=== PATIENT | male | born 1940 | race Caucasian/White ===

== ENCOUNTER → 2024-04-14 09:39 | Outpatient (REF) | payer MEDICARE, OTHER, SELFPAY ==
[2024-04-15 14:30] LABS: Calprotectin, Fecal 199 ug/g (<=49)
== END ==
LOC: REG 09:39
PROVIDERS: ATTENDING PHYSICIAN Physician Assistant; FAMILY PHYSICIAN Family Medicine; REFERRING PHYSICIAN Internal Medicine Cardiovascular Disease
DX: K51.90 Ulcerative colitis, unspecified, without complications (principal)
CPT/HCPCS: 83993

== ENCOUNTER → 2024-04-20 06:27 | Day surgery (SDC) | payer MEDICARE, OTHER, SELFPAY | LOC: GI 06:27 | PROVIDERS: ATTENDING PHYSICIAN Internal Medicine; FAMILY PHYSICIAN Family Medicine | DX: K64.8 Other hemorrhoids (principal); K92.1 Melena; K31.7 Polyp of stomach and duodenum; D49.0 Neoplasm of unspecified behavior of digestive system; D12.3 Benign neoplasm of transverse colon; D12.5 Benign neoplasm of sigmoid colon; K31.89 Other diseases of stomach and duodenum; Z98.0 Intestinal bypass and anastomosis status | CPT/HCPCS: 45385; 45380; 43239; 88305; 88342 ==

== ENCOUNTER → 2024-04-27 11:57 | Outpatient (REF) | payer MEDICARE, OTHER, SELFPAY ==
[2024-04-27 12:53] LABS: % Basophils 0.4 % (0-2); % Eosinophils 2.1 % (0-6); % Immature Granulocytes 0.2 % (0-0.5); % Lymphocytes 42.6 % (20.5-51.1); % Monocytes 6.8 % (1.7-9.3); % Neutrophils 47.9 % (42.2-75.2); Absolute Eosinophils 0.1 10^3/uL (0-0.7); Absolute Lymphocytes 2.4 10^3/uL (1.2-3.4); Absolute Monocytes 0.4 10^3/uL (0.1-0.6); Absolute Neutrophils 2.7 10^3/uL (1.4-6.5); Hematocrit 38.8 % (39.0-52.0); Hemoglobin 12.6 g/dL (13.0-18.0); Mean Corp Hgb Conc. 32.5 g/dL (33.0-37.0); Mean Corpuscular Hgb 29.2 pg (27.0-31.0); Mean Corpuscular Volume 89.8 fL (80.0-94.0); Mean Platelet Volume 9.3 fL (7.4-10.4); Nucleated Red Blood Cells % 0 % (-); Platelet Count 157 10^3/uL (130-400); Red Blood Cell Count 4.32 10^6/uL (4.70-6.10); Red Cell Dist. Width 13.9 % (11.5-14.5); White Blood Cell Count 5.7 10^3/uL (4.8-10.8)
[2024-04-27 14:00] LABS: Iron 62 ug/dl (49-181)
[2024-04-27 14:10] LABS: Percent Saturation 18 % (20-50); Total Iron Binding Capacity 330 ug/dl (261-462)
[2024-04-27 14:40] LABS: Ferritin 15.5 ng/ml (17.9-464.0)
== END ==
LOC: REG 11:57
PROVIDERS: ATTENDING PHYSICIAN Internal Medicine Hematology & Oncology
DX: D50.9 Iron deficiency anemia, unspecified (principal); K91.2 Postsurgical malabsorption, not elsewhere classified
CPT/HCPCS: 36415; 82728; 83540; 83550; 85025

== ENCOUNTER → 2024-11-09 10:15 | Outpatient (REF) | payer MEDICARE, OTHER, SELFPAY ==
[2024-11-09 10:54] LABS: % Basophils 0.5 % (0-2); % Eosinophils 2.3 % (0-6); % Immature Granulocytes 0.2 % (0-0.5); % Lymphocytes 48.2 % (20.5-51.1); % Monocytes 7.2 % (1.7-9.3); % Neutrophils 41.6 % (42.2-75.2); Absolute Eosinophils 0.1 10^3/uL (0-0.7); Absolute Lymphocytes 2.7 10^3/uL (1.2-3.4); Absolute Monocytes 0.4 10^3/uL (0.1-0.6); Absolute Neutrophils 2.3 10^3/uL (1.4-6.5); Hematocrit 40.7 % (39.0-52.0); Hemoglobin 13.7 g/dL (13.0-18.0); Mean Corp Hgb Conc. 33.7 g/dL (33.0-37.0); Mean Corpuscular Hgb 30.2 pg (27.0-31.0); Mean Corpuscular Volume 89.8 fL (80.0-94.0); Nucleated Red Blood Cells % 0 % (-); Platelet Count 147 10^3/uL (130-400); Red Blood Cell Count 4.53 10^6/uL (4.70-6.10); Red Cell Dist. Width 13.5 % (11.5-14.5); White Blood Cell Count 5.6 10^3/uL (4.8-10.8)
[2024-11-09 11:21] LABS: ALT (SGPT) 73 U/L (0-50); AST (SGOT) 59 U/L (17-59); Albumin 4.3 g/dl (3.5-5.0); Alkaline Phosphatase 118 U/L (38-126); Blood Urea Nitrogen 21 mg/dl (9-20); Calcium 9.4 mg/dl (8.4-10.2); Carbon Dioxide 29 mmol/L (22-30); Chloride 107 mmol/L (98-107); Glucose 105 mg/dl (70-99); HDL Cholesterol 48 mg/dl; Iron 82 ug/dl (49-181); LDL Cholesterol, Calculated 96 mg/dl; Potassium 4.3 mmol/L (3.5-5.1); Sodium 141 mmol/L (135-145); Total Bilirubin 0.7 mg/dl (0.2-1.3); Total Cholesterol 186 mg/dl (50-199); Total Protein 6.7 g/dl (6.3-8.2); Triglyceride 213 mg/dl (10-149); Very Low Density Lipoprotein 42 mg/dl (0-30); eGFR > 60.00
[2024-11-09 11:30] LABS: Percent Saturation 28 % (20-50); Total Iron Binding Capacity 291 ug/dl (261-462)
== END ==
LOC: REG 10:15
PROVIDERS: ATTENDING PHYSICIAN Internal Medicine Hematology & Oncology; FAMILY PHYSICIAN Family Medicine
DX: D50.9 Iron deficiency anemia, unspecified (principal); K91.2 Postsurgical malabsorption, not elsewhere classified; D50.8 Other iron deficiency anemias; Z00.01 Encounter for general adult medical examination with abnormal findings; K51.90 Ulcerative colitis, unspecified, without complications; K21.9 Gastro-esophageal reflux disease without esophagitis; J45.909 Unspecified asthma, uncomplicated; G47.30 Sleep apnea, unspecified; E78.5 Hyperlipidemia, unspecified; I10 Essential (primary) hypertension; I48.0 Paroxysmal atrial fibrillation
CPT/HCPCS: 36415; 80053; 80061; 82728; 83540; 83550; 85025

== ENCOUNTER → 2024-12-21 09:26 | Outpatient (REF) | payer MEDICARE, OTHER, SELFPAY ==
[2024-12-21 11:10] LABS: ALT (SGPT) 37 U/L (0-50); AST (SGOT) 36 U/L (17-59); Albumin 4.5 g/dl (3.5-5.0); Blood Urea Nitrogen 17 mg/dl (9-20); Carbon Dioxide 30 mmol/L (22-30); Chloride 105 mmol/L (98-107); Glucose 97 mg/dl (70-99); Sodium 143 mmol/L (135-145); Total Bilirubin 0.6 mg/dl (0.2-1.3); eGFR > 60.00
[2024-12-21 11:18] LABS: Alkaline Phosphatase 99 U/L (38-126); Calcium 9.4 mg/dl (8.4-10.2)
== END ==
LOC: REG 09:26
PROVIDERS: ATTENDING PHYSICIAN Family Medicine
DX: R79.89 Other specified abnormal findings of blood chemistry (principal)
CPT/HCPCS: 36415; 80053

== ENCOUNTER → 2025-04-01 10:52 | Outpatient (REF) | payer MEDICARE, OTHER, SELFPAY | LOC: DHSLP 10:52 | PROVIDERS: ATTENDING PHYSICIAN Internal Medicine Critical Care Medicine; FAMILY PHYSICIAN Family Medicine | DX: G47.33 Obstructive sleep apnea (adult) (pediatric) (principal) | CPT/HCPCS: 95800 ==

== ENCOUNTER → 2025-04-07 09:08 | Outpatient (REF) | payer MEDICARE, OTHER, SELFPAY ==
[2025-04-07 10:21] LABS: % Basophils 0.5 % (0-2); % Eosinophils 1.8 % (0-6); % Immature Granulocytes 0.3 % (0-0.5); % Lymphocytes 43.3 % (20.5-51.1); % Monocytes 7.8 % (1.7-9.3); % Neutrophils 46.3 % (42.2-75.2); Absolute Eosinophils 0.1 10^3/uL (0-0.7); Absolute Lymphocytes 2.8 10^3/uL (1.2-3.4); Absolute Monocytes 0.5 10^3/uL (0.1-0.6); Hematocrit 41.1 % (39.0-52.0); Hemoglobin 13.8 g/dL (13.0-18.0); Mean Corp Hgb Conc. 33.6 g/dL (33.0-37.0); Mean Corpuscular Hgb 30.1 pg (27.0-31.0); Mean Corpuscular Volume 89.5 fL (80.0-94.0); Mean Platelet Volume 8.9 fL (7.4-10.4); Nucleated Red Blood Cells % 0 % (-); Platelet Count 159 10^3/uL (130-400); Red Blood Cell Count 4.59 10^6/uL (4.70-6.10); Red Cell Dist. Width 13.4 % (11.5-14.5); White Blood Cell Count 6.5 10^3/uL (4.8-10.8)
[2025-04-07 10:29] LABS: INR 1.79; PT 21.3 Sec (11.4-14.6)
[2025-04-07 10:42] LABS: ALT (SGPT) 25 U/L (0-50); AST (SGOT) 24 U/L (17-59); Albumin 4.2 g/dl (3.5-5.0); Alkaline Phosphatase 73 U/L (38-126); Blood Urea Nitrogen 20 mg/dl (9-20); Calcium 9.5 mg/dl (8.4-10.2); Carbon Dioxide 27 mmol/L (22-30); Chloride 111 mmol/L (98-107); Glucose 104 mg/dl (70-99); Potassium 4.2 mmol/L (3.5-5.1); Sodium 145 mmol/L (135-145); Total Bilirubin 0.7 mg/dl (0.2-1.3); Total Protein 6.6 g/dl (6.3-8.2); eGFR > 60.00
== END ==
LOC: SDSPAT 09:08
PROVIDERS: ATTENDING PHYSICIAN Internal Medicine Cardiovascular Disease; FAMILY PHYSICIAN Family Medicine
DX: I48.0 Paroxysmal atrial fibrillation (principal)
CPT/HCPCS: 36415; 80053; 83735; 85025; 85610; 86850; 86900; 86901; 93005

== ENCOUNTER 2025-04-22 07:53 | Day surgery (SDC) | payer MEDICARE, OTHER, SELFPAY ==
[2025-04-07 09:55] VITALS: BMI 33.5
[2025-04-22] VITALS (10 sets, daily range): BP systolic 107–151; BP diastolic 43–119
[2025-04-22 10:45] LABS: ACT-LR - POC 366 Seconds (116-155)
[2025-04-22 11:05] LABS: ACT-LR - POC 363 Seconds (116-155)
[2025-04-22 11:30] LABS: ACT-LR - POC 372 Seconds (116-155)
--- NOTE | 2025-04-22 13:19 | ITS.CL.ABL ---
[employer] - Ablation
Ablation
Procedure Report:
ELECTROPHYSIOLOGIC STUDY AND POSSIBLE ABLATION
DATE: April 22, 2025
Primary Care Provider: Dr. Marcel Batista
INDICATION:
Symptomatic Atrial Fibrillation.
Paroxysmal
Of note, he had a flutter ablation in 2005 and then had an ablation for atrial fibrillation/PVI in 2010
HISTORY: See H and P.
Symptomatic AF, poorly controlled with attempted medical therapy
HAS-BLED: 1
Age
CHADSVASc: 3
HTN
Age
PRESENTING RHYTHM: SR
HISTORY: See H and P.
Symptomatic AF, poorly controlled with attempted medical therapy.
ANTICOAGULATION: Rivaroxaban 20 mg daily
'TIME-OUT': called and confirmed.
SEDATION/ANESTHESIA: provided via the anesthesia department using general anesthesia.
PROCEDURE:
Ultrasound Guidance with real-time visualization of needle insertion and vessel patency performed by me for femoral venous Vascular Access.
Under real-time US guidance, the needle was advanced with negative pressure into the vein. The needle was seen entering the vessel lumen with a good return of dark red flow, the syringe was removed, non-pulsatile, dark red blood low was noted and
the wire was passed without difficulty, then the needle was removed. US confirmed the wire was in the vein, not going into an artery,
Images were taken and saved for the patient's permanent record. Imaging findings typical femoral venous anatomy. Direct visualization of needle puncture into the femoral vein was observed and recorded.
A decapolar CS catheter was placed within the CS for mapping and pacing.
The intracardiac ultrasound catheter was positioned in the RA for continuous intracardiac ultrasound imaging.
Heparin bolus and infusion to target ACT at 300 -350 seconds was administered. Transseptal puncture was performed. This entailed advancing a sheath with dilator into the superior vena cava and withdrawing both (monitoring intracardiac ultrasound,
fluoroscopy and tip pressure) with the tip oriented toward the atrial septum. The fossa ovalis was engaged (indicated by sudden displacement of the sheath tip as well as tenting of the fossa seen on intracardiac ultrasound).
Transseptal puncture was performed. Left atrial catheter position was confirmed by echocardiographic imaging, pressure monitoring (LA mean pressure 18 mm Hg) and fluoroscopy. The sheath was advanced over the dilator and positioned in the left
atrium.
The [employer] multipolar mapping/ablation Sphere-9 catheter was positioned through the transseptal sheath for high density mapping.
Geometry and voltage mapping was performed using the [employer] mapping system for three-dimensional electroanatomical mapping.
Catheter positioning was guided and confirmed using both I.C.E. and fluoroscopy.
High density electroanatomical mapping demonstrates reconnection of the right inferior pulmonary vein towards its posterior inferior quadrant.
Initial ablation strategy included isolation of the pulmonary veins. This was accomplished by delivery of pulsed electric field energy via the sphere 9 catheter to the right inferior pulmonary vein
Once pulmonary venous isolation was accomplished, mapping identified extra PV contributors to atrial fibrillation.
Targets were identified with electroanatomical voltage mapping finding areas of low voltage and complex fractionated electrograms. These areas can be sites for the formation of rotors which can drive and maintain atrial fibrillation. These areas are
known to be significant contributors to initiation and perpetuation of atrial fibrillation.
Targets for additional PFA ablation included the posterior wall and the inferior/floor of the left atrium:
LA posterior wall and pulsed electric field energy via the sphere 9 catheter was delivered to the posterior wall to completely electrically isolate the posterior wall
Once posterior wall isolation was completed additional complex fractionated electrogram and areas of patchy voltage were found at the floor of the left atrium posteriorly and a floor line of ablation was completed
At the completion of ablation at the targeted extra PV sites, post ablation mapping finds that the targeted complex fractionated electrograms are eliminated rendering the sites no longer able to contribute to atrial fibrillation.
Mapping finds that all PVPs were eliminated at each vein demonstrating entrance block. Also pacing around the the circumference of the ostia was performed at 10 ma and 2.0 msec output to assess for exit block. This demonstrated electrical
isolation at each of the pulmonary vein ostia (LSPV, LIPV, RSPV, RIPV). Furthermore there is entrance and exit block at the posterior wall of the left atrium and the floor of the left atrium along the floor line.
Programmed electrical stimulation was performed and this could induce an atrial flutter with cycle length 280 to 290 ms.
Both activation mapping as well as entrainment pacing/mapping identified mitral annular flutter.
Pulse electric field energy was delivered via the sphere 9 catheter at the isthmus of tissue between the left inferior pulmonary vein down to the mitral valve annulus. An additional line was placed from the left atrial appendage down to the mitral
valve annulus. Prior to ablation systolic blood pressure was increased to 150 mmHg by administering intravenous pressor. Then 200 mcg of nitroglycerin intravenously was administered.
Closer to the annulus RF energy was used and proximal to this pulsed electric field energy was used
During energy delivery there was no ST segment abnormalities observed and there was no change in left ventricular systolic function visualized by intracardiac echocardiogram.
Programmed electrostimulation was repeated and now nonsustained episodes of right atrial flutter were identified
Catheters were removed from the left atrium and the sphere 9 catheter was utilized to create a line of electrical block at the cavotricuspid isthmus.
Once again systolic blood pressure was increased to greater than 150 mmHg and 200 mcg of intravenous nitroglycerin was delivered. RF energy was delivered closer to the tricuspid annulus at the 6 o'clock position and 30 degrees GREEK and postelective
field energy was delivered more proximally until line was completed from the tricuspid valve annulus down to the IVC. Differential pacing from both sides of the line demonstrated bidirectional block.
I.C.E. :
Pre-Ablation Post-Ablation
LVEF: 50 % 50 %
WMA: none none
Pericardial effusion: none none
COMPLICATIONS:
None
SUMMARY:
- Mapping and ablation to isolate the PVs resulting in electrical isolation of the pulmonary veins
- Additional AF ablation sets X 2 after PVI resulting in elimination of the targeted extra PV contributors to atrial fibrillation
LA posterior wall
Inf/floor of the LA posterior wall)
- Mapping and ablation of second and third tachycardias rendering it noninducible with programmed electrical stimulation
Left atrial mitral annular clockwise flutter
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
- 3-D Electroanatomical Mapping
- Intracardiac Ultrasound
- Ultrasound guidance for vascular access
Post ablation, I discussed today's findings and results with the patient's and daughter.
RECOMMENDATIONS:
- Observe in monitored bed.
- Maintain oral anticoagulation.
- Continue [ ]
- Office visit with [ ] in [ ] months.
- Continue cardiovascular care with [ ]
Copy to: [ ]
--- NOTE | 2025-04-22 15:56 | W.PN.UPDATE ---
Update Note
Progress Note Update
85 yo WM s/p PVI (same day). He denies cp, sob, alaina diet, voiding, amb w/o dizziness, EKG SR 1 deg AVB, R fem site c/d/i VAscade. He will resume Xarelto tonight. Activity restrictions reviewed. He will f/u Dr. Rivera in 3 mo. He is for d/c home after
3pm.
== END 2025-04-22 14:57 | disposition home or self-care (01) ==
LOC: CATH 07:53
PROVIDERS: ATTENDING PHYSICIAN Internal Medicine Cardiovascular Disease; FAMILY PHYSICIAN Family Medicine
DX: I48.19 Other persistent atrial fibrillation (principal); I48.92 Unspecified atrial flutter; I10 Essential (primary) hypertension; Z79.01 Long term (current) use of anticoagulants; R00.0 Tachycardia, unspecified; I44.7 Left bundle-branch block, unspecified
CPT/HCPCS: C1894; C1769; C1766; C1730; C1892; C1733; 85347; 93005; 93655; 93656; 93657; C1760

== ENCOUNTER → 2025-10-29 09:27 | Outpatient (REF) | payer MEDICARE, OTHER, SELFPAY ==
[2025-10-29 10:44] LABS: Hematocrit 37.7 % (39.0-52.0); Hemoglobin 12.5 g/dL (13.0-18.0); Mean Corp Hgb Conc. 33.2 g/dL (33.0-37.0); Mean Corpuscular Volume 86.1 fL (80.0-94.0); Nucleated Red Blood Cells % 0 % (-); Platelet Count 177 10^3/uL (130-400); Red Cell Dist. Width 13.3 % (11.5-14.5)
[2025-10-29 11:14] LABS: Iron 93 ug/dl (49-181)
[2025-10-29 11:24] LABS: Total Iron Binding Capacity 366 ug/dl (261-462)
[2025-10-29 11:51] LABS: Ferritin 16.1 ng/ml (17.9-464.0)
== END ==
LOC: REG 09:27
PROVIDERS: ATTENDING PHYSICIAN Internal Medicine Hematology & Oncology; FAMILY PHYSICIAN Family Medicine
DX: D50.9 Iron deficiency anemia, unspecified (principal); K91.2 Postsurgical malabsorption, not elsewhere classified; D50.8 Other iron deficiency anemias
CPT/HCPCS: 36415; 82728; 83540; 83550; 85025